=== PATIENT | female | born 1990 | race Caucasian/White ===

== ENCOUNTER → 2016-12-12 | Outpatient (CLI) | payer BC ==
--- NOTE | 2016-12-12 10:36 | DI ---
Indication: ITS.REASON: M25.562 PAIN IN LEFT KNEE skiing injury with knee pain PROCEDURE: MRI KNEE LEFT W/O CONTRAST: Encounter: Initial Comparison: None Technique: Multiplanar multisequence MR imaging of the left knee was performed without contrast. Findings: The lateral meniscus is intact. Medial meniscus is intact. Complete midsubstance rupture of the ACL. The PCL is normal. There is edema superficial and deep to the MCL which appears intact. The lateral collateral ligament complex is intact. The extensor mechanism is maintained. Bone marrow edema in the lateral femoral condyle and lateral tibial plateau with a "kissing contusions "appearance. No discrete fracture line seen. Remaining bone marrow signal intensity is normal. The cartilage of the medial and lateral compartments is maintained. Small areas of cartilage fissuring in the trochlear groove and median ridge of the patella. Large joint effusion. No Ellis's cyst. Popliteus tendon is intact. Muscular signal intensity is within normal limits. Impression: 1. Complete rupture of the ACL with associated bone contusions. 2. Grade 1 MCL injury .
== END ==
LOC: IMA 08:43
PROVIDERS: ATTEND Physician Assistant
DX: S83.512A Sprain of anterior cruciate ligament of left knee, initial encounter (principal); S83.412A Sprain of medial collateral ligament of left knee, initial encounter; S80.02XA Contusion of left knee, initial encounter; V00.321A Fall from snow-skis, initial encounter; Y93.23 Activity, snow (alpine) (downhill) skiing, snowboarding, sledding, tobogganing and snow tubing; Y92.828 Other wilderness area as the place of occurrence of the external cause; Y99.9 Unspecified external cause status; M25.562 Pain in left knee

== ENCOUNTER 2017-01-31 05:35 | Day surgery (SDC) | payer BC ==
[2017-01-31] VITALS (19 sets, daily range): BP systolic 121–139; BP diastolic 70–95; PULSE 86–112; RESP 12–22; TEMP 97.1–98.8; O2SAT 93–100; Ht 167.6 cm; Wt 69.0 kg
[~2017-01-31] VITALS: Ht 167.6 cm; Wt 69.0 kg
[~2017-01-31 05:35] MED LIST: CETI-115 PO
--- NOTE | 2017-01-31 06:32 | ANESPREOP ---
Anesthesia Record Date and Time DATE: 01/31/17 TIME: 06:30 Proposed Surgical Procedure LT KNEE RECONSTRUCTION Allergies: Coded Allergies: Penicillins (Verified Allergy, Severe, 05/03/13) Ht/Wt/BMI Height: ' " Weight: kg BMI: kg/m2 Medications Inpatient Medications Current Medications Medications (Trade) Dose Ordered Sig/Yamilex Start Time Stop Time Status Last Admin Dose Admin Lactated Ringer's (Lactated Ringers) 1,000 ml @ 50 mls/hr Q20H 01/31/17 07:00 Cetirizine HCl (Zyrtec) 10 Mg Tablet, 1 TAB PO DAILY, (Reported) Currently on Beta Berta: No Medical/Surgical History Anesthesia PMH: Reports: Asthma (hospitalized for asthma attack in 2012. rarely uses inhaler), Denies: *Diabetes, Anesthesia Reactions (NO AIRWAY ISSUES) , Arthritis, Cancer, Clotting Problems, Glaucoma, Malignant Hyperthermia, Renal Disease, Thyroid Disease Smoking Status: Never smoker Has pt. smoked today?: No Use Chewing Tobacco?: No Second Hand Exposure: No Substance Use Type: does not use Alcohol Intake: none HX of Last Menstrual Period: JANUARY 2017 Past Surgical History Orthopedic Surgeries: Abdominal Surgeries: Genitourinary Surgeries: Cardiac Surgeries: Endocrine Surgeries: Reproductive Surgeries: Neurological Surgeries: Ear Surgeries: Nose Surgeries: Throat Surgeries: Other Surgeries: Anesthesia Adverse Reactions: FOUND none Family Hx of Anesthesia Advers: none Hx of Motion Sickness: No Pertinent Findings Test 01/31/17 06:06 Urine Test Negative (NEGATIVE) EKG Rhythm: Sinus Rhythm Physical Exam Respiratory: Lungs clear Cardiovascular: FOUND Regular rate, rhythm Airway Assessment Mallampati Score: I TMD: 3 Fingerbreadths Neck Extension: Good Overall Assessment: No Airway Concerns ASA: 1 Plan Anesthesia Plan: LMA Discussion Discussed risks/options/alternatives of anesthesia and questions answered. Patient consents. Nursing pain assessment noted. Attestation Statement Prior to the delivery of any anesthetic medication, I examined the patient, developed the plan, obtained the patient's consent and discussed the risk and benefits of the procedure with the patient/guardian. IOANA DALEY January 31, 2017 06:31
--- NOTE | 2017-01-31 06:42 | ANESPREOP ---
Anesthesia Record Date and Time DATE: 01/31/17 TIME: 06:42 Pre-Op Diagnosis torn acl Proposed Surgical Procedure LT KNEE RECONSTRUCTION NPO since: mn Allergies: Coded Allergies: Penicillins (Verified Allergy, Severe, 01/31/17) Ht/Wt/BMI Height: 5 ' 6.00 " Weight: 69.000 kg BMI: 24.6 kg/m2 Vital Signs Date Time Temp Pulse Resp B/P Pulse Ox O2 Delivery O2 Flow Rate FiO2 01/31/17 05:47 98.8 86 14 127/84 100 Room Air Medications Inpatient Medications Current Medications Medications (Trade) Dose Ordered Sig/Yamilex Start Time Stop Time Status Last Admin Dose Admin Lactated Ringer's (Lactated Ringers) 1,000 ml @ 50 mls/hr Q20H 01/31/17 07:00 01/31/17 06:35 50 MLS/HR Cetirizine HCl (Zyrtec) 10 Mg Tablet, 1 TAB PO DAILY, (Reported) Last Taken: on 01/30/17 0800 Currently on Beta Berta: No Medical/Surgical History Anesthesia PMH: Reports: Asthma (hospitalized for asthma attack in 2012. rarely uses inhaler), Denies: *Diabetes, Anesthesia Reactions (NO AIRWAY ISSUES) , Arthritis, Cancer, Clotting Problems, Glaucoma, Malignant Hyperthermia, Renal Disease, Sleep Apnea, Thyroid Disease Smoking Status: Never smoker Has pt. smoked today?: No Use Chewing Tobacco?: No Second Hand Exposure: No Substance Use Type: does not use Alcohol Intake: none HX of Last Menstrual Period: JANUARY 2017 Past Surgical History Orthopedic Surgeries: Abdominal Surgeries: Genitourinary Surgeries: Cardiac Surgeries: Endocrine Surgeries: Reproductive Surgeries: Neurological Surgeries: Ear Surgeries: Nose Surgeries: Throat Surgeries: Other Surgeries: Anesthesia Adverse Reactions: FOUND none Family Hx of Anesthesia Advers: none Hx of Motion Sickness: No Pertinent Findings Test 01/31/17 06:06 Urine Test Negative (NEGATIVE) EKG Rhythm: Sinus Rhythm Physical Exam Respiratory: Lungs clear Cardiovascular: FOUND Regular rate, rhythm Airway Assessment Mallampati Score: I TMD: 3 Fingerbreadths Neck Extension: Good Overall Assessment: No Airway Concerns ASA: 1 Plan Anesthesia Plan: LMA Discussion Discussed risks/options/alternatives of anesthesia and questions answered. Patient consents. Nursing pain assessment noted. Attestation Statement Prior to the delivery of any anesthetic medication, I examined the patient, developed the plan, obtained the patient's consent and discussed the risk and benefits of the procedure with the patient/guardian. JUAN MIGUEL CARRENO CRNA January 31, 2017 06:42
[2017-01-31] MEDS ORDERED: FENTANYL 100mcg/2ml INJECTION ONE ×2 (06:46→08:49)
[2017-01-31] MEDS ORDERED: PROPOFOL 200mg 20 ML IV ONE (06:51)
[2017-01-31] MEDS ORDERED: BUPIVACAINE 0.25% (2.5mg/ml) INJ 30ml SDV ONE (06:52)
[2017-01-31] MEDS ORDERED: MEPERIDINE 100 mg/ml VIAL ONE (06:53)
[2017-01-31] MEDS ORDERED: DEXAMETHASONE 4mg/ml - 1ml INJECTION ONE (06:53)
[2017-01-31] MEDS ORDERED: PROPOFOL 200mg 200 MG, ESMOLOL 50 MG, KETAMINE 50 MG, LIDOCAINE 2% 100 MG, MAGNESIUM SU... IV ONE ×7 (07:00)
[2017-01-31] MEDS ORDERED: LIDOCAINE 1% (10mg/ml) 2ml SDV INJ ONE (07:00)
[2017-01-31] MEDS ORDERED: LR 1,000 ML IV SCH (07:00)
[2017-01-31] MEDS ORDERED: CLINDAMYCIN 600mg IVPB 50 ML IV ONE (07:30)
[2017-01-31] MEDS ORDERED: KETOROLAC 30mg/ml INJECTION ONE (07:30)
[2017-01-31] MEDS ORDERED: ONDANSETRON 4mg/2ml INJECTION ONE (08:53)
[2017-01-31] MEDS ORDERED: ONDA4TAB4 PO (09:20)
[2017-01-31] MEDS ORDERED: HYDR-347 PO (09:20)
--- NOTE | 2017-01-31 09:22 | PDPROCED ---
Immediate Operative Note DATE: 01/31/17 TIME: 09:21 Preop Diagnosis: LEFT KNEE ACL TEAR Postop Diagnosis: Left knee ACL tear, LMT Surgical Procedures: L ACL Reconstruction (PLM) Surgeon: Erick Trust Clerk: SEN Reyes Anesthesia: General Complications: none Estimated Blood Loss see anesthesia GEOVANI TREVINO January 31, 2017 09:22
[2017-01-31] MEDS ORDERED: MORPHINE 10mg/ml vl INJECTION IV PRN (09:45)
--- NOTE | 2017-01-31 10:13 | ANESPO ---
Post-Op Note Date 01/31/17 Time: 10:08 Status Pt Participated in Evaluation: Pt participated in person Vital Signs Date Time Temp Pulse Resp B/P Pulse Ox O2 Delivery O2 Flow Rate FiO2 01/31/17 10:05 103 14 134/82 96 Room Air 01/31/17 09:25 6.00 01/31/17 09:14 97.6 Respiratory Function: Airway patent Cardiovascular Function: Regular pulse Mental Status: Alert/oriented Pain Level Intensity: 3 Unable to Assess Pain Due To: Medicated/Sleeping Hydration: IV infusing Complications during Recovery None apparent Follow-Up Instructions Instructions Per Surgeon JUAN MIGUEL CARRENO CRNA January 31, 2017 10:12
--- NOTE | 2017-01-31 12:21 | OPNOTEF ---
DATE OF OPERATION 01/31/2017 PREOPERATIVE DIAGNOSIS Left knee ACL tear. POSTOPERATIVE DIAGNOSIS 1. Left knee ACL tear. 2. Left knee posterior horn lateral meniscus tear. 3. Left knee intraarticular loose body. 4. 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 PROCEDURE 1. Left knee arthroscopic ACL reconstruction with patellar tendon autograft. 2. Left knee arthroscopic partial lateral meniscectomy. 3. Left knee arthroscopic loose body removal. 4. Left knee arthroscopic shaving chondroplasty patella. SURGEON Benton Suarez MD LAMINATING MACHINE OPERATOR Uche Lopez PA-C ANESTHESIA General FLUIDS Please refer to Anesthesia chart. EBL Minimal. TOURNIQUET Please refer to Anesthesia chart. COMPLICATIONS None. CONDITION Stable to recovery room. IMPLANTS 1. Junior & Nephew 7 x 20 mm Sofsilk titanium interference screw. 2. Junior [employer] Nephew 7 x 25 mm ORTIZ coated BIOSURE screw. DESCRIPTION OF PROCEDURE Patient was identified in the preoperative holding area. The operative extremity was identified and appropriately marked. Risks, benefits, alternatives and potential complications were discussed and informed consent was obtained. The patient was taken to the operating theatre, placed supine on the operating table. Appropriate cardiorespiratory monitors were applied. General anesthesia was induced. A tourniquet was applied high on the left thigh though not yet inflated. Left lower extremity was sterilely prepped and draped in the usual fashion. Surgical time-out was performed, confirmed with myself, the magnetic prospecting supervisor and circulating nurse. Preoperative antibiotics were given. Examination under anesthesia revealed 2B Alvarez's, positive pivot glide, no posterior instability, stable to varus and valgus stress, normal range of motion. The leg was exsanguinated with an Esmarch and the tourniquet inflated. Attention was first turned towards with patellar tendon graft harvest. An incision was created from the inferior pole of the patella over the tibial tubercle. Electrocautery was used for hemostasis as necessary. Full-thickness subcutaneous flaps were elevated after incision of the bursa. The peritenon was then incised longitudinally from the midpoint of the patella distally over the tibial tubercle. Full-thickness peritenon flaps were elevated medially and laterally to reveal the borders of the patellar tendon. It was elected to proceed with a 9-mm graft and double bladed 9 mm graft knife was utilized to harvest the central third of patella. Oscillating saw was used to take bone plugs from both the patella and the tibial tubercle. The graft was then taken to the back table where it was sized and prepared by the assistant account manager and then subsequently placed on the graft master under tension while wrapped in saline soaked lap sponges. The patellar tendon was loosely reapproximated with running 0 Vicryl suture. The peritenon was then closed from the inferior pole of the patella distally. A periosteal window was then created on the anteromedial tibial flare just above the pes anserine tendons and anterior to the MCL. Attention was then turned towards the arthroscopic portion of the procedure. Standard inferolateral portal was established. The arthroscope was inserted and the knee was insufflated with saline. Needle localization was utilized to establish a medial portal through the graft harvest incision. Diagnostic examination ensued. Suprapatellar pouch, medial and lateral gutters were found to be free of loose bodies or debris. Patellofemoral joint was visualized noting a centrally tracking patella. There was an area of fissuring of the patella on the apex. Probing of this revealed it to be a small flap. This area was debrided with a suction shaver. Limited synovectomy was performed to aid in visualization for the arthroscopic portion of the ACL reconstruction. The medial compartment was then entered noting normal medial articular cartilage and normal medial meniscus. The intercondylar notch was then visualized noting a visibly torn ACL with fragmentation present anteriorly at the tibial insertion. The knee was then moved to a figure four position as the lateral compartment was entered. There was a complex tear of the posterior horn of the lateral meniscus. This had an inner rim tear in the white-white zone which was initially trimmed with basket forceps. This revealed a horizontal split tear extending posterior and superiorly. The superior leaf was debrided and resected back to a stable meniscal rim as well. The body and anterior horn as well as posterior root were found to be intact. Attention was then turned towards debridement of the notch. Combination of radiofrequency ablation device and suction shaver were used to debride the quechan ACL. Limited notchplasty was then performed to aid in visualization and prevent graft impingement. The knee was then placed in a hyperflexed position as needle localization was utilized to establish a far anteromedial portal for drilling of the femoral tunnel. The proposed placement of the Beath pin was measured first with an arthroscopic ruler, noting trying stay between the fibers of the posterior lateral bundle and the anteromedial bundle fibers. The Beath pin was then advanced. This was then overreamed with a 9 mm crescentic reamer taking care to avoid contact with the medial femoral condyle. The edges were chamfered. Extraneous bone debris was removed with a suction shaver. A #5 Ethibond suture was then pulled through with the Beath pin and parked in the femoral tunnel for later passage of the graft. The knee was then placed back in 90 degrees of flexion. ACL guide was placed at the quechan ACL insertion on the tibial plateau. The guidewire was advanced followed by reaming with a 9-mm reamer, capturing reamings for later placement in the patellar defect. The posterior wall was chamfered with a rasp to assure no sharp edges. Extraneous bone debris was again removed from the joint with a suction shaver. The passing suture was then pulled through the tibial tunnel. The graft was brought forward from the back table by the assistant account manager. The graft was then shuttled into position. The knee was placed back in hyperflexion as a 7 x 20 mm titanium interference screw was placed above the graft, providing excellent interference fit. The knee was taken through range of motion while visualizing arthroscopically, noting no evidence of bone and graft impingement. The knee was then cycled while maintaining tension and then placed in full extension. A 7 x 25 mm ORTIZ coated BIOSURE screw was tapped in place anterior to the tibial bone plug. Repeat examination showed absence of pivot glide, stable anterior drawer and Alvarez's. The joint was copiously irrigated and all arthroscopic instruments were removed. Periosteal window in the medial tibial flare was closed with interrupted [id number] 0 Vicryl sutures. Bone graft was placed in the patellar defect and the remainder of the peritenon was closed with 2-0 Vicryl. Standard layered skin closure was performed. Marcaine was injected along the incision lines and Marcaine cocktail in the joint. Sterile dressings were applied followed by an Luke bandage and IROM brace locked in extension. The tourniquet was deflated. The patient was awakened from anesthesia and taken to the recovery room in stable and satisfactory condition. MARY
[2017-02-01] MEDS ORDERED: OXYC1TAB8 PO (15:11)
== END 2017-01-31 11:27 | disposition home or self-care (01) ==
LOC: NSC 05:35
PROVIDERS: ATTEND Orthopaedic Surgery
DX: S83.512A Sprain of anterior cruciate ligament of left knee, initial encounter (principal); S83.272A Complex tear of lateral meniscus, current injury, left knee, initial encounter; M22.42 Chondromalacia patellae, left knee; J45.909 Unspecified asthma, uncomplicated; Z88.1 Allergy status to other antibiotic agents; X58.XXXA Exposure to other specified factors, initial encounter
CPT/HCPCS: 29881; 29888; 81025; C1713; G0289; J1100; J1885; J2175; J2405; J2704; J3010; J7120; S0020

== ENCOUNTER 2017-02-01 14:29 | Emergency (ER) | payer BC ==
[~2017-02-01] VITALS: Ht 167.6 cm; Wt 71.0 kg
[~2017-02-01 14:29] MED LIST changes: +HYDR-347 PO; +ONDA4TAB4 PO
--- OUTSIDE RECORDS SUMMARY | 2017-02-01 14:37 | XMS REPORT | Continuity of Care Document ---
Author Author [facility] Organization [facility] Address Unknown Phone Unavailable Support Name Relationship Address Phone JUAN MIGUEL YU MD Caregiver [address] [place] [address] Unavailable MLEANIA HUTSON MD Caregiver [address] [place] [address] Unavailable PROSPER BOB Next Of Kin [address] [place] [address] Insurance Providers Guarantor Arun Curry Address [address] [place] [address] mom Email [email or web address] [facility] Policy Number [id number] Subscriber's Name Arun Curry Relationship 18 Self Group Number [id number] Advance Directives Directive Response Recorded Date/Time Dr Rivera Resuscitation Status Full Code 01/30/17 4:18pm Resuscitation Documents on File No 01/31/17 6:30am DPOA for Healthcare Only No 01/31/17 6:30am Living Will No 01/31/17 6:30am Problems No problem information available. Medications Current Home Medications Medication Dose Units Route Directions Days Qty Instructions Start Date Cetirizine Hcl (Zyrtec) 10 Mg Tablet 1 Tab Oral Daily 01/30/17 Hydrocodone/Acetaminophen ([place] 7.5-325 Tablet) 7.5-325 Tablet 1-2 Tab Oral Every 4 Hours Prn as needed for Pain 60 Tablet 01/31/17 Ondansetron Hcl (Zofran) 4 Mg Tablet 4 Mg Oral Every 6 Hours as needed for Nausea 10 Tablet 01/31/17 Social History Social History Problem Response Recorded Date/Time Onset Date Status Reason for Hospitalization LEFT ACL REPAIR WITH PATELLA TENDON 01/31/2017 9: 38am Not Applicable Not Applicable Chewing Tobacco Status No 01/30/2017 12:01pm Not Applicable Not Applicable Hx Substance Use No 01/30/2017 12:01pm Not Applicable Not Applicable Hx Alcohol Use No 01/30/2017 12:01pm Not Applicable Not Applicable Has the pt used tobacco in the last 12 months No 01/30/2017 12:01pm Not Applicable Not Applicable Query Response Start Date Stop Date Smoking Status Never smoker Hospital Discharge Instructions Instructions: Care Instructions: I was in the hospital because (patient own words): "LEFT ACL REPAIR" Discharge Diet: Resume normal diet as tolerated. Discharge Activity: Please refer to Dr. Hutson's postoperative instructions. Follow Up Appointments: DECEMBER 07, 2016 AT 9:45 AM Pending Lab / Results: No Pending Lab Expected Signs/Symptoms: Please refer to Dr. Hutson's postoperative instructions. Notify Physician If: Please refer to Dr. Hutson's postoperative instructions. During Business Hours:: Please call our office at [phone]. After Business Hours:: Please call the hospital at [phone] and have the physician or the covering physician paged. Pain Management/Treatment: Please refer to Dr. Hutson's postoperative instructions. Wound/Incision Care: Please refer to Dr. Hutson's postoperative instructions. Condition at time of discharge: Good Plan of Care Discharge Date 01/31/17 11:27am Instructions/Education Provided [facility] Erick ACL Reconstruct Prescriptions See Medication Section Functional Status Query Response Date Recorded Ability to complete ADL's impeded by No change January 31, 2017 6:30am Allergies, Adverse Reactions, Alerts Allergen Type Severity Reaction Status Last Updated Penicillin Allergy Severe Active 01/31/17 Immunizations Query Response on File Recorded Date/Time Hx Influenza Vaccination Y JUN 2016 01/30/17 12:01pm Hx Pneumococcal Vaccination No 01/30/17 12:01pm Hx Influenza Vaccination Y JUN 2016 01/30/17 12:01pm Vital Signs Acute Vital Signs Vital Response Date/Time Temperature (Fahrenheit) 98.2 deg F (96.8 - 99.1) 01/31/2017 11:20am Temperature (Calculated Celsius) 36.85452 degrees C (36.0 - 37.3) 01/31/2017 11:20am Temperature Source Temporal 01/31/2017 11:20am Pulse Rate (adult) 92 bpm (60 - 100) 01/31/2017 11:20am Respiratory Rate 14 breaths/min (10 - 20) 01/31/2017 11:20am O2 Sat by Pulse Oximetry 98 % (90 - 100) 01/31/2017 11:20am Oxygen Delivery Method Room Air 01/31/2017 11:20am Oxygen Flow Rate 6.00 L/min 01/31/2017 9:25am Blood Pressure 122/82 mm Hg 01/31/2017 11:20am Blood Pressure Source Automatic Cuff 01/31/2017 11:20am Height (Feet) 5 feet 01/31/2017 5:47am Height (Inches) 6.00 inches 01/31/2017 5:47am Weight (Kilograms) 69.000 kg 01/31/2017 5:47am Body Mass Index (BMI) 24.6 01/31/2017 5:47am Results No known relevant diagnostic tests, laboratory data and/or discharge summary. Procedures Procedure Status Date Provider(s) Mri jnt of lwr extre w/o dye Completed 12/12/16 Reconstruction of anterior cruciate ligament of left knee Completed 01/31/17 MELANIA HUTSON MD Encounters Encounter Location Arrival/Admit Date Discharge/Depart Date Attending Provider Departed Surgical Day Care [facility] 01/31/17 5:35am 01/31/17 11 :27am MELANIA HUTSON MD Registered Clinic [facility] 12/12/16 8:43am CLAUDY BLANCHARD
[2017-02-01 14:43] VITALS: BP 149/76; PULSE 84; RESP 17; TEMP 98.6; O2SAT 98; Ht 167.6 cm; Wt 71.0 kg
--- NOTE | 2017-02-01 14:55 | NUR ---
PROVIDER N NOLD TELECOM ANALYST AT BEDSIDE
--- NOTE | 2017-02-01 15:05 | ERPDOC ---
Departure Disposition Decision Date: February 01, 2017 Disposition Decision Time: 15:09 Disposition: 01 DISCHARGED HOME, SELF-CARE Impression Impression Impression: Primary Impression: Facial swelling Severity: Moderate Condition: Stable Seen By: Mid-level only Referrals: JUAN MIGUEL YU MD (Family) Patient Instructions: General Allergic Reaction (ED) Problems/Meds/Labs Reviewed?: Yes Medications reviewed and manag: Yes Additional Instructions: Stop using the Marmaduke. Take the Percocet as needed for pain. I do want you to monitor the symptoms for continued improvement. If you should have any worsening swelling, shortness of breath, hives, or any other concerns then return to Er. May use Benadryl as needed for swelling as well. Follow up care ordered?: Yes Mental Status: Alert, Oriented Scripts Oxycodone HCl/Acetaminophen (Percocet 5-325 mg Tablet) 5-325 Tablet 1-2 TAB PO Q6H Y for PAIN, #20 TAB 0 Refills Take 1 tablet, by mouth, every 4 hours as needed for pain. Prov: NIKKIDIANNEMIKOElias Chavarria APRN 02/01/17 HPI - Skin General General Chief Complaint: Allergic Reaction Stated Complaint: SWOLLEN FACE AFTER TAKING PRESCRIPTION Time Seen by Provider: 14:53 Source: patient Exam Limitations: no limitations HPI - Skin General Initial Comments She had an ACL reconstructive surgery yesterday. Was sent home with Rx for Marmaduke. She noticed this morning that her face was more swollen than usual. She has not had any trouble breathing, wheezing, or rash or itching. She has not taken Marmaduke in the past. She has not taken any Benadryl today. She did call her surgeons office and they recommended that she come to ER. She last took a Marmaduke at 1015 today. Occurred At: home Onset: Gradual Duration: 12-24 hrs Severity: moderate Location: face Possible Cause: medications (possibly) Associated Symptoms: edema (of right side of face), DENIES: blisters, change in skin texture, fever, headache, hives, jaundice, malaise, nasal congestion, numbness, other, pallor, paresthesia, rash, sore throat, swelling/mass/lumps, tingling Hx of Similar Symptoms: No Allergies: Coded Allergies: Penicillins (Verified Allergy, Severe, 02/01/17) hydrocodone (Verified Allergy, Intermediate, FACIAL SWELLING, 02/01/17) Past History Past Medical History Respiratory: asthma Surgical History Denies Surgeries Family History Family History: Negative Vaccines Hx Influenza Vaccination: Yes (JUN 2016) Hx Pneumococcal Vaccination: No Social History Smoking Status: Never smoker Does patient use chewing tobac: No Second Hand Exposure: No Substance Use Type: does not use Alcohol Intake: none Review of Systems Constitutional Constitutional: DENIES: chills, dizziness, fatigue, fever, weakness ENMT Ears: DENIES: drainage, pain Sinuses: DENIES: congestion, rhinorrhea Mouth/Throat: sore throat (mild, but she was intubated yesterday), DENIES: change in voice, drooling, hoarsness, painful swallowing, scratchy throat Teeth: DENIES: pain Cardiovascular Cardiac: DENIES: chest pain, dyspnea on exertion Rhythm/Rate: DENIES: irregular beat, palpitations Vascular: DENIES: pedal edema, unilateral swelling Pulmonary Respiratory: DENIES: cough, dyspnea, sputum, tachypnea GI Upper Abdomen: DENIES: nausea, pain, vomiting Lower Abdomen: DENIES: constipation, diarrhea, pain Integumentary Skin: DENIES: rash Neurological General: DENIES: headache, numbness, tingling, weakness Physical Exam General General Nourishment: well nourished, well developed, appears stated age, no acute distress, adult General Body Habitus: well groomed Vitals and Pain First Documented Vital Signs Date Time Temp Pulse Resp B/P Pulse Ox O2 Delivery O2 Flow Rate FiO2 02/01/17 14:43 98.6 84 17 149/76 98 Room Air Weight: Kilograms: 71.000 Height (feet): 5 Height (inches): 6.00 Triage Pain Scale: RN VS reviewed by Provider: Yes Normal Exams: Eyes: Pupils are PERRLA w/ EOMI, No scleral icterus, irritation, or foreign bodies noted Neck: Full range of motion, without adenopathy, JVD, bruits or thyromegaly Chest/Resp: Clear all amaro, with good airflow, and symmetry bilaterally Abdomen: Bowel sounds positive, soft, non-tender, non-distended, no hepatosplenomegaly, masses or bruits noted Lymphatic: No lymphadenopathy, or lymphedema noted Integumentary: No rashes, hives, or bruising noted Neurologic: Patient is alert, and oriented Psychiatric: Patient exhibits, appropriate attention, emotion and affect ENMT (brief) ENMT Brief: FOUND: TM clear, TM good light reflex, ear canals clear, mucosa moist, normal dentition, normal tonsils, other (The right side of her face does look more swollen than the left. This is only apparent on the left cheek, no periorbital edema noted.), NOT FOUND: lesions, nasal erythema, nasal exudate, nasal swelling, petechiae, pharnyx erythema, tonsillar deviation [facility] Face: asymmetry (due to swelling), swelling, NOT FOUND: bruising, erythema, tender Jaw: NOT FOUND: trismus Gums: moist, pink, NOT FOUND: exudate, lesion, swelling Tongue: NOT FOUND: swelling Teeth: NOT FOUND: caries, fractures, implants, missing Differential Diagnoses Considering: Other (Allergic reaction, hives, medication reaction, anaphylaxis) Progress Progress Progress Aside from the swelling on the right cheek her exam is pretty benign. Will go ahead and have her stop the Marmaduke and take Percocet as needed for pain. May try some Benadryl as needed. Her symptoms are improving throughout the day so as long as they continue to improve she may monitor at home. This could be from a medication that was given during or after surgery. Return to Er with any dyspnea or swelling of tongue or any other concerns. CELESTINA PACHECO APRN February 01, 2017 15:05
[2017-02-01] MEDS ORDERED: OXYC1TAB8 PO (15:11)
--- NOTE | 2017-02-01 15:25 | NUR ---
DISMISSAL PAIN MED GIVEN. INSTRUCTIONS REVIEWED. DISMISSED AMB ON CRUTCHES
[2017-02-01] MEDS ORDERED: OXYCODONE/APAP 5mg/325mg TABLET PO ONE (15:30)
== END 2017-02-01 15:25 | disposition home or self-care (01) ==
LOC: ED 14:29
DX: R22.0 Localized swelling, mass and lump, head (principal)